=== PATIENT | female | born 1995 | race Caucasian/White ===

== ENCOUNTER 2020-01-11 17:27 | Emergency (ER) | payer OTHER, SELFPAY ==
--- NOTE | ~2020-01-11 | US_ITS ---
US OB <=14 wk fetus w TV 01/11/2020 18:55 Indication: Vaginal bleeding. Positive test 3 weeks ago. Quantitative beta-hCG level is 71. Procedure: Real-time early obstetrical ultrasound using transabdominal and transvaginal technique Comparison: No prior studies for comparison. Findings: Uterus measures 8.1 x 5.4 x 3.7 cm. Endometrium measures 8 mm. No intrauterine gestational sac or pole identified. The ovaries are normal with normal Doppler signal. Right ovary measures 2.5 x 1.4 x 1.2 cm. Left ovar y measures 3.7 x 1.5 x 1.4 cm. Impression: 1: Unremarkable pelvic ultrasound. No evidence for intrauterine . Differential diagnosis con sidering positive test with low beta hCG levels is very early intrauterine , faile d and ectopic . Recommend follow-up with serial quantitative beta-hCG levels and u ltrasound as clinically indicated. Reviewed, dictated and finalized at location A. 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 No evidence for intrauterine . Diff erential diagnosis considering positive test with low beta hCG levels is very early intrauterine , failed and ectopic . Recommend follow-up with serial quantitative beta-hCG levels and ultrasound as clinically indicated.
[2020-01-11 17:36] VITALS: BP 116/57; PULSE 90; RESP 16; TEMP 36.5; O2SAT 100
--- NOTE | 2020-01-11 18:00 | ED.PREGNANCY ---
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 Patient states her last normal menstrual period was in September. She took first had a positive test 3 weeks ago and she states she developed vaginal bleeding 1 week ago . She states initially her vaginal bleeding was heavy with clots but no her bleeding is minimal. She reports she had lower abdominal cramping that hs improved. She denies dizziness or lightheadedness. She is unsure of her blood type. She states she went to [facility] and she was sent to ER for evaluation. MD Complaint: vaginal bleeding Related Data Home Medications Medication Instructions Recorded Confirmed No Home Medications 01/11/20 01/11/20 Allergies Allergy/AdvReac Type Severity Reaction Status Date / Time No Known Allergies Allergy Unverified 01/11/20 18:05 Review of Systems Review of Systems: All systems reviewed & are unremarkable except as noted in HPI and below Constitutional: Constitutional: Denies chills and Denies fever(s) Gastrointestinal: Gastrointestinal: Reports abdominal pain, Denies nausea and Denies vomiting Genitourinary: Genitourinary: Reports abnormal vaginal bleeding PMF Past Medical History Medical History (Updated 01/11/20 @ 19:40 by Romina Blood MD) Healthy adult Social History Social History Gender identity (if verbalized by the patient): Female Exam Narrative: Exam Narrative: GENERAL: Well-appearing, well-nourished, and in no acute distress. HEAD: Normocephalic, atraumatic EYES: PERRLA and EOMI, conjunctiva clear without discharge THROAT:Mucous membranes moist, NECK: Supple, without lymphadenopathy or mass RESPIRATORY: No respiratory distress, Airway patent, Respirations non-labored, Clear to auscultation without rales, rhonchi or wheeze HEART: Regular rate and rhythm. No murmur heard. Normal peripheral pulses. ABDOMEN: Soft, nontender, nondistended, normal active bowel sounds. No masses. No rebound or guarding, No organomegaly. EXTREMITIES: No edema, normal strength with full range of motion. SKIN: Warm, dry, normal color without rash NEURO: Alert and oriented x3. CN 2-12 grossly intact. No focal deficits. PSYCH: Normal mood and affect. : Other: no vaginal bleeding, closed cervix Course Course Emergency Course: Patient presented for evaluation of vaginal bleeding. She has no bleeding currently. I suspect she is having miscarriage. I Discussed with patient she will need to follow up with [facility] to have HCG redrawn. Vital Signs Vital signs: Vital Signs Temperature 97.7 F 01/11/20 17:36 Pulse Rate 90 01/11/20 17:36 Respiratory Rate 16 01/11/20 17:36 Blood Pressure 116/57 L 01/11/20 17:36 Pulse Oximetry 100 01/11/20 17:36 Temperature 97.7 F 01/11/20 17:36 Pulse Rate 90 01/11/20 17:36 Respiratory Rate 16 01/11/20 17:36 Blood Pressure 116/57 L 01/11/20 17:36 Pulse Oximetry 100 01/11/20 17:36 MDM - OB/Uterine Contractions Lab Data Attestation: I reviewed the patient's lab results. Result diagrams: 01/11/20 18:05 Labs: Lab Results 01/11/20 01/11/20 01/11/20 Range/Units 18:05 18:05 18:05 WBC 5.3 (4.5-10.0) K/mm3 RBC 4.28 (4.2-5.4) M/mm3 Hgb 13.3 (12.0-15.0) g/dL Hct 39.5 (37.0-47.0) % MCV 92.3 (80-100) fl MCH 31.1 (26-34) pg MCHC 33.7 (32-36) g/dl RDW 12.5 (11.5-14.5) % Plt Count 230 (150-375) k/mm3 MPV 10.0 (7.4-10.4) fl Immature Gran % (Auto) 0.2 (0-0.5) % Neut % (Auto) 45.2 L (45.5-73.1) % Lymph % (Auto) 42.9 (18.3-44.2) % Mclean % (Auto) 10.2 H (2.6-8.5) % Eos % (Auto) 1.1 (0-4.4) % Baso % (Auto) 0.4 (0.2-1.2) %
[2020-01-11 18:10] LABS: Basophils Percent Auto 0.4 % (0.2-1.2); Eosinophils Absolute Auto 0.1 K/mm3 (0-0.3); Eosinophils Percent Auto 1.1 % (0-4.4); Hematocrit 39.5 % (37.0-47.0); Hemoglobin 13.3 g/dL (12.0-15.0); Immature Granulocyte Absolute 0.01 K/mm3 (0.00-0.031); Immature Granulocyte Percent A 0.2 % (0-0.5); Lymphocytes Absolute Auto 2.28 K/mm3 (0.9-3.2); Lymphocytes Percent Auto 42.9 % (18.3-44.2); Mean Corpuscular HGB Conc 33.7 g/dl (32-36); Mean Corpuscular Hemoglobin 31.1 pg (26-34); Mean Corpuscular Volume 92.3 fl (80-100); Monocytes Absolute Auto 0.5 K/mm3 (0.1-0.6); Monocytes Percent Auto 10.2 % (2.6-8.5); Neutrophils Absolute Auto 2.4 K/mm3 (1.3-6.7); Neutrophils Percent Auto 45.2 % (45.5-73.1); Platelet Count Result 230 k/mm3 (150-375); Red Blood Count 4.28 M/mm3 (4.2-5.4); Red Cell Distribution Width 12.5 % (11.5-14.5); White Blood Count 5.3 K/mm3 (4.5-10.0)
[2020-01-11 18:38] LABS: Beta HCG Quantitative 71.14 mIU/ML
== END 2020-01-11 19:57 | disposition home or self-care (01) ==
PROVIDERS: Emergency Provider General Practice
DX: O03.9 Complete or unspecified spontaneous abortion without complication (principal)
CPT/HCPCS: 36415; 76801; 76817; 84702; 85025; 86900; 86901; 99284

== ENCOUNTER 2022-05-22 15:30 | Outpatient (CLI) | payer OTHER, SELFPAY ==
[2022-05-22 15:51] VITALS: BP 129/90; PULSE 99
[2022-05-22 16:00] VITALS: BP 129/84; PULSE 93
[2022-05-22 16:15] VITALS: BP 124/87; BP 129/90; PULSE 94; PULSE 99
[2022-05-22 16:16] LABS: Basophils Percent Auto 0.3 % (0.2-1.2); Eosinophils Absolute Auto 0.1 K/mm3 (0-0.3); Eosinophils Percent Auto 0.9 % (0-4.4); Hematocrit 37.5 % (37.0-47.0); Hemoglobin 12.7 g/dL (12.0-15.0); Lymphocytes Absolute Auto 2.26 K/mm3 (0.9-3.2); Lymphocytes Percent Auto 22.6 % (18.3-44.2); Mean Corpuscular HGB Conc 33.9 g/dl (32-36); Mean Corpuscular Hemoglobin 31.8 pg (26-34); Mean Corpuscular Volume 93.8 fl (80-100); Mean Platelet Volume 12.8 fl (7.4-10.4); Monocytes Absolute Auto 0.8 K/mm3 (0.1-0.6); Monocytes Percent Auto 8.2 % (2.6-8.5); Neutrophils Absolute Auto 6.7 K/mm3 (1.3-6.7); Platelet Count Result 103 k/mm3 (150-375); Red Cell Distribution Width 13.1 % (11.5-14.5)
[2022-05-22 16:22] LABS: Appearance Urine Clear (Clear); Bilirubin Urine 1+ (Negative); Blood Urine 1+ (Negative); Color Urine Yellow (Yellow); Glucose Urine UA Negative (Negative); Ketones Urine Negative (Negative); Leukocyte Esterase Ur Negative LEU/UL (NEGATIVE); Nitrate Urine Negative (Negative); Protein Urine Trace mg/dL (Negative); Specific Grav Ur 1.025 (1.001-1.035); Urobilinogen Urine 0.2 mg/dL (<2.0)
[2022-05-22 16:27] LABS: Alanine Aminotransferase 20 U/L (6-35); Albumin Level 3.3 g/dL (3.5-5.1); Alkaline Phosphatase 249 U/L (38-126); Anion Gap 4 mmol/L (8-16); Aspartate Amino Transferase 25 U/L (14-36); Bilirubin,Total 0.4 mg/dL (0.2-1.3); Blood Urea Nitrogen 8 mg/dL (7-17); Calcium 8.3 mg/dL (8.4-10.2); Carbon Dioxide 24 mmol/L (22-30); Chloride 107 mmol/L (98-107); Estimated Glomerular Filt Rate > 60; Glucose 99 mg/dL (65-110); Potassium 3.6 mmol/L (3.4-5.0); Sodium 135 mmol/L (137-145)
[2022-05-22 16:30] VITALS: BP 120/81; PULSE 89
[2022-05-22 16:31] LABS: Bacteria Urine Trace /hpf; Calcium Oxalate Crystals Urine Present /hpf; Mucus Urine Few /lpf; Squamous Epithelial Cell Urine Occasional /hpf (Few); WBC Urine 0-3 /hpf (0-3)
[2022-05-22 16:32] LABS: Add Urine Microscopic? YES
[2022-05-22 16:36] LABS: Creatinine Urine 240.8 mg/dL; Total Protein Urine Random 7 mg/dL; Ur Ttl Prot Creatinine Ratio 0.03 mg/mg (0-0.20)
[2022-05-22 16:45] VITALS: BP 126/84; PULSE 87
--- NOTE | 2022-05-22 17:03 | PC.NURSE ---
5214- Spoke with Tiffany Teixeira CNM. Labs and BPs reviewed. Per Tiffany Teixeira, she would like to induce patient now, but patient has been hesitant to want to be induced and stay tonight. Pateint may either stay tonight or come back tomorrow morning for an induction.
--- NOTE | 2022-05-22 17:06 | PC.NURSE ---
1700- Spoke with patient regarding plan of care. Per Tiffany Teixeira, recommended for patient to stay and be induced now. patient states I really dont want to stay tonight, I wasnt prepared for any of this. I was just going to a doctors appointment today. Patient educated on her low platelet count and chooses to come back in the morning for an induction. Induction scheduled for 0700 tomorrow, 05/23/2022. Tiffany Teixeira, notified.
== END 2022-05-22 17:00 | disposition home or self-care (01) ==
LOC: ANHOBOP 15:35 → ANHOBPP 15:35
PROVIDERS: Visit Provider Advanced Practice Midwife
DX: O13.9 Gestational [pregnancy-induced] hypertension without significant proteinuria, unspecified trimester (principal); Z3A.00 Weeks of gestation of pregnancy not specified
CPT/HCPCS: 36415; 59025; 80053; 81001; 82570; 84156; 84550; 85025; 87086; 99199

== ENCOUNTER 2022-05-23 08:17 | Inpatient (IN) | payer OTHER, SELFPAY ==
[2022-05-23] VITALS (95 sets, daily range): BP systolic 109–160; BP diastolic 59–110; PULSE 32–147; RESP 16; TEMP 36.1–36.5; O2SAT 78–100; BMI 27.0
--- OUTSIDE RECORDS SUMMARY | 2022-05-23 08:32 | XMS_ITS ---
:1995 Author Care Team Providers Name Role Phone Lluvia Suzi Parveen Primary Care Provider Unavailable Allergies Code Code System Name Reaction Severity Status Onset NKDA ? Medications Name Status Start Date Stop Date ? ? famotidine 20 mg tablet Active ? Not avai lable fluconazole 150 mg tablet Completed ? 2021 metronidazole 500 mg tablet Completed ? 12/25 nitrofurantoin monohydrate/macrocrystals 100 mg capsule Complete d ? 03/13/2022 ondansetron 4 mg disintegrating tablet Active ? Not available 28 mg iron-800 mcg tablet Active ? Not available TAKE 1 TABLET BY MOUTH EVERY DAY Problems Name Status Onset Date Source ? Active 01/08/2022 ? Tobacco User Active ? ? Insufficient Care Active ? ? Current Drug User Active ? ? Procedures Date Name Performed by ? 01/08/2022 US, Obstetric, 2Nd or 3Rd Trimester [facility] [address] [place] [address] ([address]) 02/27/2022 US, Obstetric, Follow-up [place] [address] [place] [address] ([address]) 03/27/2022 US, Obstetric, Follow-up [place] [address] [place] [address] (Work [address]) 04/03/2022 US, Obstetric, Limited [place] [address]
--- OUTSIDE RECORDS SUMMARY | 2022-05-23 08:32 | XMS_ITS ---
:1995 Author Care Team Providers Name Role Phone Carmen Key Primary Care Provider Unavailabl e Allergies Code Code System Name Reaction Severity Status Onset NKDA ? Medications Name Status Start Date Stop Date ? ? Anusol-HC 2.5 % topical cream with perineal applicator Completed 01/05/2014 11/19/2015 apply externally prn azithromycin 500 mg tablet Completed 04/10/201706/09 2 p.o. today cephalexin 500 mg capsule Completed 11/23/20182018 1 capsule po BID x 7 days codeine 10 mg-guaifenesin 100 mg/5 mL oral liquid Completed 12/03/2013 02/01/2014 10ml q6h prn for cough COVID-19 test specimen collection Active ? Not available TEST DIRECTED Depo-Provera 150 mg/mL intramuscular suspension Completed 04/03/2017 04/11/2017 1 injection IM q3mos. fluconazole 150 mg tablet Active ? Not av ailable Junel FE 12/13 (28) 1 mg-20 mcg (21)/75 mg (7) tablet Completed 01/13/2017 04/03/2017 Take 1 tablet(s) by mouth daily as directed. Metrogel Vaginal 0.75 % Completed 09/20/2015 11/19/20 15 1 applicator at HS x 5 nights. metronidazole 500 mg tablet Active ? Not available Minastrin 24 Fe 1 mg-20 mcg (24)/75 mg (4) chewable tablet Compl eted 06/22/2015 09/20/2015 Take 1 tablet(s) by mouth daily as directed. naproxen 500 mg tablet,delayed release Completed 10/11/2020 take 1 tablet (500 mg) by oral route 2 times per day with food Nicoderm CQ 14 mg/24 hr daily transdermal patch Completed 09/06/2014 09/07/2014 14mg daily x 6 weeks, then 7mg daily x 6 weeks nitrofurantoin monohydrate/macrocrystals 100 mg capsule Active ? Not available
--- OUTSIDE RECORDS SUMMARY | 2022-05-23 08:32 | XMS_ITS | Encounter Summary ---
:1995 Author Reason for Visit None recorded. Assessment and Plan 1. Insufficient care ? US, obstetric, follow-up Discussion Note: None recorded.Patient educational handouts: No information available. Plan of Care Reminders Provider Appointments None recorded. ? ? Lab None recorded. ? ? Referral None recorded. ? ? Procedures None recorded. ? ? Surgeries None recorded. ? ? Imaging US, Obstetric, Follow-up 04/24/2022 Niraj rodriguez Medications Name Start Date ? ? famotidine 20 mg tablet ? Take 1 tablet twice a day by oral route. ondansetron 4 mg disintegrating tablet ? Place 1 tablet every 4-6 hours by translingual route. 28 mg iron-800 mcg tablet ? TAKE 1 TABLET BY MOUTH EVERY DAY Medications Administered None recorded. Vitals None recorded. Results Lab Results None recorded. Allergies Code Code System Name Reaction Severity Onset NKDA ? ? ? Problems Name Status Onset Date Source ? Active 01/08/2022 ? Tobacco User Active ? ? Insufficient Care Active ? ? Current Drug User Active ? ? Procedures Date Name Performed by ? 03/27/2022 US, Obstetric, Follow-up [place] [address] [place] [address] (Work [address]) 04/03/2022 US, Obstetric, Limited [place] [address] [place],
--- OUTSIDE RECORDS SUMMARY | 2022-05-23 08:32 | XMS_ITS | Encounter Summary ---
:1995 Author Reason for Visit OB visit OB [id number] EDC 05/16/2022 LMP 08/09/2021 Assessment and Plan Assessment Note Patient is _36__weeks . Discuss ed plan. 1. Routine care Discussion Note: None recorded.Patient educational handouts: No information available. Plan of Care Reminders Provider Appointments None recorded. ? ? Lab None recorded. ? ? Referral None recorded. ? ? Procedures None recorded. ? ? Surgeries None recorded. ? ? Imaging None recorded. ? ? Medications Name Start Date ? ? famotidine 20 mg tablet ? Take 1 tablet twice a day by oral route. ondansetron 4 mg disintegrating tablet ? Place 1 tablet every 4-6 hours by translingual route. 28 mg iron-800 mcg tablet ? TAKE 1 TABLET BY MOUTH EVERY DAY Medications Administered None recorded. Vitals Height Weight BMI Blood Pressure 5 ft 6 in 165 lbs 26.6 kg/m2 132/87 mm[Hg] Results Lab Results None recorded. Allergies Code Code System Name Reaction Severity Onset NKDA ? ? ? Problems Name Status Onset Date Source ? Active 01/08/2022 ? Tobacco User Active ? ? Insufficient Care Active ? ? Current Drug User Active ? ? Procedures Date Name Performed by ? 03/27/2022 US, Obstetric, Follow-up [place] [address] [place] [address]
--- OUTSIDE RECORDS SUMMARY | 2022-05-23 08:32 | XMS_ITS | Encounter Summary ---
:1995 Author Reason for Visit None recorded. Assessment and Plan 1. Medical examination for suspected co ndition ? US, obstetric, limited Discussion Note: None recorded.Patient educational handouts: No information available. Plan of Care Reminders Provider Appointments None recorded. ? ? Lab None recorded. ? ? Referral None recorded. ? ? Procedures None recorded. ? ? Surgeries None recorded. ? ? Imaging US, Obstetric, Limited 04/03/2022 Jena leyva Medications Name Start Date ? ? famotidine [...] Performed by ? 03/27/2022 US, Obstetric, Follow-up [place] [address] [place] [address] (Work [address]) 04/03/2022 US, Obstetric, Limited [place] [address]
--- OUTSIDE RECORDS SUMMARY | 2022-05-23 08:32 | XMS_ITS | Encounter Summary ---
:1995 Author Reason for Visit OB visit OB [id number] EDC 05/16/2022 LMP 08/09/2021 Assessment and Plan Assessment Note Patient is _29__weeks . Discuss ed plan. 1. Routine care ? 28 mg iron-800 mcg tablet 2. Urinary tract infectious disease ? Macrobid 100 mg capsule 3. Nausea ? ondansetron 4 mg disintegrating table t ? Pepcid 20 mg tablet Discussion Note: None recorded.Patient educational handouts: No [...] BMI Blood Pressure 5 ft 6 in 157 lbs 25.3 kg/m2 106/69 mm[Hg] Results Lab Results None recorded. Allergies Code Code System Name Reaction Severity Onset NKDA ? ? ? Problems Name Status Onset Date Source ? Active 01/08/2022 ? Tobacco User Active ? ? Insufficient Care Active ? ? Cu
--- OUTSIDE RECORDS SUMMARY | 2022-05-23 08:32 | XMS_ITS | Encounter Summary ---
:1995 Author Reason for Visit OB visit OB [id number] EDC 05/16/2022 LMP 08/09/2021 Assessment and Plan Assessment Note Patient is _34__weeks . Discuss ed plan. 1. Routine care [...] BMI Blood Pressure 5 ft 6 in 162 lbs 26.1 kg/m2 138/80 mm[Hg] Results Lab Results None recorded. Allergies Code Code System Name Reaction Severity Onset NKDA ? ? ? Problems Name Status Onset Date Source ? Active 01/08/2022 ? Tobacco User Active ? ? Insufficient Care Active ? ? Current Drug User Active ? ? Procedures Date Name Performed by ? 03/27/2022 US, Obstetric, Follow-up [place] [address] [place] [address]
--- OUTSIDE RECORDS SUMMARY | 2022-05-23 08:32 | XMS_ITS | Encounter Summary ---
:1995 Author Reason for Visit OB visit OB [id number] EDC 05/16/2022 LMP 08/09/2021 Assessment and Plan Assessment Note Patient is __37_weeks . Discuss ed plan. 1. Routine care [...] ft 6 in 165 lbs 26.6 kg/m2 134/85 mm[Hg] Results Lab Results None recorded. Allergies Code Code System Name Reaction Severity Onset NKDA ? ? ? Problems Name Status Onset Date Source ? Active 01/08/2022 ? Tobacco User Active ? ? Insufficient Care Active ? ? Current Drug User Active ? ? Procedures Date Name Performed by ? 04/03/2022 US, Obstetric, Limited [facility] [address] [place] [address]
--- OUTSIDE RECORDS SUMMARY | 2022-05-23 08:32 | XMS_ITS | Encounter Summary ---
:1995 Author Reason for Visit OB visit OB [id number] EDC 05/16/2022 LMP 08/09/2021 Assessment and Plan Assessment Note Patient is ___weeks . Discussed plan. 1. Routine care Discussion Note: None [...] BMI Blood Pressure 5 ft 6 in 167 lbs 27 kg/m2 147/100 mm[Hg] Results Lab Results None recorded. Allergies Code Code System Name Reaction Severity Onset NKDA ? ? ? Problems Name Status Onset Date Source ? Active 01/08/2022 ? Tobacco User Active ? ? Insufficient Care Active ? ? Current Drug User Active ? ? Procedures Date Name Performed by ? 04/24/2022 US, Obstetric, Follow-up [place] [address] [place] [address]
--- OUTSIDE RECORDS SUMMARY | 2022-05-23 08:32 | XMS_ITS | Encounter Summary ---
:1995 Author Reason for Visit OB visit OB [id number] EDC 05/16/2022 LMP 08/09/2021 Assessment and Plan Assessment Note Patient is __30_weeks . Discuss ed plan. 1. Routine care [...] BMI Blood Pressure 5 ft 6 in 158 lbs 25.5 kg/m2 117/76 mm[Hg] Results Lab Results None recorded. Allergies Code Code System Name Reaction Severity Onset NKDA ? ? ? Problems Name Status Onset Date Source ? Active 01/08/2022 ? Tobacco User Active ? ? Insufficient Care Active ? ? Current Drug User Active ? ? Procedures Date Name Performed by ? 02/27/2022 US, Obstetric, Follow-up [facility] [address] [place] [address]
--- OUTSIDE RECORDS SUMMARY | 2022-05-23 08:32 | XMS_ITS | Encounter Summary ---
:1995 Author Reason for Visit OB visit OB [id number] EDC 05/16/2022 LMP 08/09/2021 Assessment and Plan Assessment Note Patient is _32__weeks . Discuss ed plan. 1. Routine care [...] BMI Blood Pressure 5 ft 6 in 159 lbs 25.7 kg/m2 122/80 mm[Hg] Results Lab Results None recorded. Allergies Code Code System Name Reaction Severity Onset NKDA ? ? ? Problems Name Status Onset Date Source ? Active 01/08/2022 ? Tobacco User Active ? ? Insufficient Care Active ? ? Current Drug User Active ? ? Procedures Date Name Performed by ? 02/27/2022 US, Obstetric, Follow-up [place] [address] [place] [address]
--- OUTSIDE RECORDS SUMMARY | 2022-05-23 08:32 | XMS_ITS | Encounter Summary ---
[...] recorded. ? ? Imaging US, Obstetric, Follow-up 03/27/2022 Niraj rodriguez Medications Name Start Date ? [...] Performed by ? 02/27/2022 US, Obstetric, Follow-up [place] [address] [place] [address] (Work [address]) 03/27/2022 US, Obstetric, Follow-up [place] [address],
--- OUTSIDE RECORDS SUMMARY | 2022-05-23 08:32 | XMS_ITS | Encounter Summary ---
[...] recorded. ? ? Imaging US, Obstetric, Follow-up 02/27/2022 Niraj rodriguez Medications Name Start Date ? [...] Performed by ? 02/27/2022 US, Obstetric, Follow-up [place] [address] [place] [address] ([address]) Vaccine List None recorded. Social History Tobacco Smoking Status Heavy Tobacco Smoker (1/2 pack per da y) What type of diet are you following? REGULAR
--- NOTE | 2022-05-23 09:28 | LDADM ---
This patient, Maranda Gomez, was admitted to Labor/Delivery/Recovery 107 on 05/23/22 at 08:17. Plans for labor, pain management and were discussed with patient. Patient/family oriented to hospital policies and general routines including ID bracelet, bed and alarms, visiting hours, pain management, procedures, bathroom and other care routines, personal items, smoking policy, room service/diet and guest tray routines, infant security routines, and visiting hours. Patient/Family are encouraged to report perceived risks to care and to ask questions if they do not understand what they are told or what they should do. See OBIX for further documentation.
[2022-05-23 09:30] LABS: Basophils Percent Auto 0.2 % (0.2-1.2); Eosinophils Absolute Auto 0.1 K/mm3 (0-0.3); Hematocrit 39.5 % (37.0-47.0); Hemoglobin 13.2 g/dL (12.0-15.0); Immature Granulocyte Percent A 1.7 % (0-0.5); Lymphocytes Absolute Auto 2.72 K/mm3 (0.9-3.2); Lymphocytes Percent Auto 23.7 % (18.3-44.2); Mean Corpuscular HGB Conc 33.4 g/dl (32-36); Mean Corpuscular Hemoglobin 31.2 pg (26-34); Mean Corpuscular Volume 93.4 fl (80-100); Mean Platelet Volume 12.9 fl (7.4-10.4); Monocytes Percent Auto 8.5 % (2.6-8.5); Neutrophils Absolute Auto 7.5 K/mm3 (1.3-6.7); Neutrophils Percent Auto 64.9 % (45.5-73.1); Platelet Count Result 122 k/mm3 (150-375); Red Blood Count 4.23 M/mm3 (4.2-5.4); Red Cell Distribution Width 13.2 % (11.5-14.5); White Blood Count 11.5 K/mm3 (4.5-10.0)
[2022-05-23] MEDS: AMPICILLIN 2 GM/NS 100 ML 2 GM/100 ML BAG IVPB (10:33)
[2022-05-23] MEDS: OXYTOCIN 30 UNITS/NS 500 ML 30 UNITS/500 ML BAG IV CONT (10:33)
[2022-05-23] MEDS: LACTATED RINGERS 1,000 ML 125 ML IV CONT (10:34)
[2022-05-23 10:40] LABS: Barbiturate Screen Urine Negative (Negative); Benzodiazepines Screen Urine Negative (Negative)
[2022-05-23 10:53] LABS: Cannabinoid Screen Urine Negative (Negative); Cocaine Screen Urine Negative (Negative); Methadone Screen Urine Negative (Negative); Opiate Screen Urine Negative (Negative); Phencyclidine Screen Urine Negative (Negative)
[2022-05-23 11:00] LABS: Amphetamine Screen Urine Positive (Negative)
--- NOTE | 2022-05-23 14:03 | PM.OBPNLAB ---
Pain Control Date/time seen: 05/23/22 14:03 Pelvic Exam Dilation (cm): 3
--- NOTE | 2022-05-23 14:03 | WPDOBADMIT ---
Obstetrics - Admit Note Admission Note: record reviewed. No pertinent additions to the history and/or any subsequent changes in the physical findings that are not consistent with the expected course of the were found. Admitted to labor and delivery for induction at 41 weeks. History of fentanyl and amphetamine use during . Sterile vaginal exam 3.5/80/-1. Arom performed, Moderate amount of clear odorless fluid. Anticipate vaginal delivery. Additions to the history and/or subsequent changes in the physical findings follow. None.
[2022-05-23] MEDS: AMPICILLIN 1 GM/NS 50 ML 1 GM/50 ML BAG IVPB (14:28)
--- NOTE | 2022-05-23 16:22 | WPDANESEPP ---
Anes - Eval Pre Procedure Procedure: labor epidural Date/Time: 05/23/22 16:22 Surgeon: soina Preop Diagnosis: pain during labor Pre Op Diagnosis: IOL Patient Data Age: 27 Gender: F Height: 1.68 m Weight: 76 kg Last Vital Signs Temp 36.1 C L 05/23/22 14:51 Pulse 104 H 05/23/22 16:21 BP 143/85 H 05/23/22 16:21 Pulse Ox 99 05/23/22 16:19 O2 Del Method Room Air 05/23/22 09:27 Allergies Allergy/AdvReac Type Severity Reaction Status Date / Time No Known Allergies Allergy Unverified 05/23/22 08:56 Home Medications Medication Instructions Recorded Confirmed Type vit no.95-ferrous 1 tablet PO DAILY 05/22/22 05/23/22 History fumarate 28 mg-folic acid 800 mcg tablet () Laboratory Tests 05/23/22 05/23/22 05/23/22 09:19 09:19 09:19 WBC 11.5 K/mm3 H K/mm3 (4.5-10.0) RBC 4.23 M/mm3 M/mm3 (4.2-5.4) Hgb 13.2 g/dL g/dL (12.0-15.0) Hct 39.5 % % (37.0-47.0) MCV 93.4 fl fl (80-100) MCH 31.2 pg pg (26-34) MCHC 33.4 g/dl g/dl (32-36) RDW 13.2 % % (11.5-14.5) Plt Count 122 k/mm3 L k/mm3 (150-375) MPV 12.9 fl H fl (7.4-10.4) Immature Gran % (Auto) 1.7 % H % (0-0.5) Neut % (Auto) 64.9 % % (45.5-73.1) Lymph % (Auto) 23.7 % % (18.3-44.2) Tucker % (Auto) 8.5 % % (2.6-8.5) Eos % (Auto) 1.0 % % (0-4.4) Baso % (Auto) 0.2 % % (0.2-1.2) Lymph # (Auto) 2.72 K/mm3 K/mm3 (0.9-3.2) Tucker # (Auto) 1.0 K/mm3 H K/mm3 (0.1-0.6) Eos # (Auto) 0.1 K/mm3 K/mm3 (0-0.3) Baso # (Auto) 0.0 K/mm3 K/mm3 (0.0-0.1) Abs Immat Gran (auto) 0.20 K/mm3 H K/mm3 (0.00-0.031) Absolute Neuts (auto) 7.5 K/mm3 H K/mm3 (1.3-6.7) Absolute Nucleated RBC 0.0 K/mm3 K/mm3 (0.0-0.012) Nucleated RBC % 0.0 % % (0.0-0.2) Urine Opiates Screen Urine Methadone Screen Ur Barbiturates Screen Ur Phencyclidine Scrn Ur Amphetamine Screen U Benzodiazepines Scrn Urine Cocaine Screen U Cannabinoids Screen RPR Pending Blood Type A Positive Antibody Screen Negative 05/23/22 09:19 WBC RBC Hgb Hct MCV MCH MCHC RDW Plt Count MPV Immature Gran % (Auto) Neut % (Auto) Lymph % (Auto) Tucker % (Auto) Eos % (Auto) Baso % (Auto) Lymph # (Auto) Tucker # (Auto) Eos # (Auto) Baso # (Auto) Abs Immat Gran (auto) Absolute Neuts (auto) Absolute Nucleated RBC Nucleated RBC % Urine Opiates Screen Negative (Negative) Urine Methadone Screen Negative (Negative) Ur Barbiturates Screen Negative (Negative) Ur Phencyclidine Scrn Negative (Negative) Ur Amphetamine Screen Positive A (Negative) U Benzodiazepines Scrn Negative (Negative) Urine Cocaine Screen Negative (Negative) U Cannabinoids Screen Negative (Negative) RPR Blood Type Antibody Screen Patient hx anesthesia problems: none Family hx anesthesia problems: none Results Review: All pre-operative results and documents have been reviewed as part of the pre-operative evaluation. [facility] Past Medical History Medical History (Updated 05/23/22 @ 16:23 by Brenda Rai CRNA) Healthy adult Intrauterine Social History Social History (Updated 05/23/22 @ 09:32 by Janette López RN) Smoking packs per day: 0.5 Smoking cigarettes per day: 10.0 Years smoked: 14 Smoking pack-years: 7.00 Smoking status: Current every day smoker Tobacco type: cigarettes Alcohol intake: former Alcohol use details: has not drank in 4-5 years Substance use:
--- NOTE | 2022-05-23 18:05 | P.PCNOB_ITS ---
OB - Delivery Note Procedure Delivery date: 05/23/22 Procedure: Vaginal delivery Events: Elective Induction of Labor Induction method: AROM and Per Pitocin Protocol Delivery monitor: External FHT and External Uterine Route of delivery: Episiotomy description: None Laceration Description: None Specimen: Yes Quantitative Blood Loss (ml): 97 Anesthesia type: Epidural Disposition: Floor [place] Baby Date of : 05/23/22 Time of : 17:49 Weeks of gestation at delivery: 41 Infant gender: Female Weight (pounds): 7 Weight (ounces): 5 presentation: vertex position: Right Occiput Anterior Placenta delivery description: Spontaneous Cord Vessel Description: 3 Vessels, Clamped/Cut and Delayed Cord Clamping score one minute: 9 score five minutes: 9 Narrative: mom and baby skin to skin in stable condition
[2022-05-23] MEDS: OXYTOCIN 30 UNITS/NS 500 ML 30 UNITS/500 ML BAG 125 UNITS IV CONT (18:45)
[2022-05-23] MEDS: WITCH HAZEL 40 PADS 1 PAD TOPICAL (20:30)
[2022-05-23] MEDS: BENZOCAINE 20% AER SPR (*SP) 56 GM CAN 1 SPRAY TOPICAL (20:30)
[2022-05-23] MEDS: IBUPROFEN 600 MG TABLET PO (20:30)
[2022-05-23] MEDS: ACETAMINOPHEN 325 MG TABLET 650 MG PO (22:54)
[2022-05-24 04:20] VITALS: BP 125/74; PULSE 70; RESP 14; TEMP 36.6; O2SAT 100
[2022-05-24] MEDS: IBUPROFEN 600 MG TABLET PO ×4 (04:45→22:50)
[2022-05-24 05:58] LABS: Hematocrit 37.2 % (37.0-47.0); Hemoglobin 12.3 g/dL (12.0-15.0)
[2022-05-24 07:25] VITALS: BP 107/69; PULSE 73; RESP 16; TEMP 37.1; O2SAT 100
[2022-05-24 07:35] LABS: Rapid Plasma Reagin Non-Reactive (NonReactive)
--- NOTE | 2022-05-24 07:49 | P.PNOB_ITS ---
OB - PN: Subj Subjective Date/time seen: 05/24/22 07:49 s/p vaginal delivery day 1 OB - PN: Obj Data Labs CBC & Chem 7: 05/24/22 04:35 Labs: Laboratory Results - last 24 hr 05/23/22 05/23/22 05/23/22 09:19 09:19 09:19 WBC 11.5 H RBC 4.23 Hgb 13.2 Hct 39.5 MCV 93.4 MCH 31.2 MCHC 33.4 RDW 13.2 Plt Count 122 L MPV 12.9 H Immature Gran % (Auto) 1.7 H Neut % (Auto) 64.9 Lymph % (Auto) 23.7 Mcnairy % (Auto) 8.5 Eos % (Auto) 1.0 Baso % (Auto) 0.2 Lymph # (Auto) 2.72 Mcnairy # (Auto) 1.0 H Eos # (Auto) 0.1 Baso # (Auto) 0.0 Abs Immat Gran (auto) 0.20 H Absolute Neuts (auto) 7.5 H Absolute Nucleated RBC 0.0 Nucleated RBC % 0.0 Urine Opiates Screen Urine Methadone Screen Ur Barbiturates Screen Ur Phencyclidine Scrn Ur Amphetamine Screen U Benzodiazepines Scrn Urine Cocaine Screen U Cannabinoids Screen RPR Non-reactive Blood Type A Positive Antibody Screen Negative 05/23/22 05/24/22 09:19 04:35 WBC RBC Hgb 12.3 Hct 37.2 MCV MCH MCHC RDW Plt Count MPV Immature Gran % (Auto) Neut % (Auto) Lymph % (Auto) Mcnairy % (Auto) Eos % (Auto) Baso % (Auto) Lymph # (Auto) Mcnairy # (Auto) Eos # (Auto) Baso # (Auto) Abs Immat Gran (auto) Absolute Neuts (auto) Absolute Nucleated RBC Nucleated RBC % Urine Opiates Screen Negative Urine Methadone Screen Negative Ur Barbiturates Screen Negative Ur Phencyclidine Scrn Negative Ur Amphetamine Screen Positive A U Benzodiazepines Scrn Negative Urine Cocaine Screen Negative U Cannabinoids Screen Negative RPR Blood Type Antibody Screen OB - PN A/P Plan day: 1 Plan: routine care Time Spent With Patient Time: Total time spent is greater than 50% in coordination of care (as documented) at patient's floor/unit and/or counseling patient: Review of Systems Review of Systems: All systems reviewed & are unremarkable except as noted in HPI and below Exam Const: General: cooperative, healthy appearing and comfortable
[2022-05-24] MEDS: DOCUSATE SODIUM 100 MG CAPSULE PO (10:51)
--- NOTE | 2022-05-24 11:39 | PCCCNOTE ---
Addendum entered by Pat Sanchez, APPLE PRESS OPERATOR 05/24/22 15:15: Spoke with Indy [facility]. [facility] financial investigator, who came out to see pt. and baby today. She reports main worker will be Diane if baby discharges through the week. Per RNKamla, wire wheeler plans to watch baby for 5 days for symptoms of further withdrawal. If something would come up over weekend, Annabel Reis, [facility] clay preparation supervisor is contract negotiator [phone]. Original Note: Care Coordination: Patient referred to CC for drug use during . Pt. and baby also both have UDS positive for amphetamines. RN reports baby was very jittery and hard to console last night, but has done a little better this morning. Spoke with pt. at bedside. She reports fentanyl is her drug of choice, but You know it's not really done like a pharmacy, so I don't know if something else gets in there. Pt. is referring to positive amphetamine drug screen. Pt. states having 3 year old and 8 year old that are not in her care and removed through [facility]. Pt. plans to return home with her mother. Pt. reports she had been going to [facility] for counseling and methadone, but hasn't been for about a month due to transportation, so she's been using fentanyl. Pt. had late care with [facility], but she reports also had been going to another clinic called [facility]. Spoke with [facility] hotline worker, Kia Dennis, who states they will take report on pt. Intake ID#[id number]. Received call from [facility] financial investigator, Diane, ([phone]) that someone from [facility] will likely be coming out to do investigation since pt. is from [facility] and we are in [facility]. Notified Diane that pt. will discharge tomorrow and baby could be this weekend, but watching for withdrawals. Provided pt. with drug rehab information and offered to get her setup with [facility] or other drug rehab places, but pt. reports not ready to work on that yet. RNKathleen, aware of above. Will follow.
[2022-05-24 12:10] VITALS: BP 155/76; PULSE 86; RESP 16; TEMP 36.7; O2SAT 99
--- NOTE | 2022-05-24 14:52 | WPDANLDPN2 ---
Anes-Prog Note L&D Date/Time: 05/24/22 14:52 Neuro status: Neuro function grossly intact. Vital Signs: Last Vital Signs Temp 36.7 C 05/24/22 12:10 Pulse 86 05/24/22 12:10 Resp 16 05/24/22 12:10 BP 155/76 H 05/24/22 12:10 Pulse Ox 99 05/24/22 12:10 O2 Del Method Room Air 05/23/22 09:27 Pain score (VAS): 0 I/O: Intake & Output 05/23/22 05/24/22 05/24/22 23:59 07:59 15:59 Intake Total 500 Output Total 97 Balance 403 Patient feedback: Patient satisfied with anesthetic care.
[2022-05-24 16:30] VITALS: BP 133/77; PULSE 100; RESP 16; TEMP 36.7; O2SAT 98
[2022-05-24] MEDS: ACETAMINOPHEN 325 MG TABLET 650 MG PO (16:38)
--- NOTE | 2022-05-24 17:21 | PC.NURSE ---
1254 Diane / [facility] (Primary Sanding Machine Tender Automatic) #[phone], called to let us know that another clerical investigator from [facility] would be out to see mom (Maranda Gomez) hopefully today because mom lives in [facility] but [facility] is in [facility] so they need to do a parallel investigation and interview mom. [address] Jerez to advise him that baby's UDS came back positive for amphetamines, he would like to know if it is ok that baby is rooming in with mom since baby now has a positive UDS. Notified Martha Hyman, OB Director and she would like for the RN to verify with DCFS if ok for baby to room in. 1355 Called and spoke with Diane ([facility] [employer]) and asked about baby rooming in with mom now that baby has a positive UDS for amphetamines, she will check with her compensation supervisor and call the RN back. 1409 Pullman Vern ([facility] clerical investigator) here to interview mom (Maranda Gomez). Ms. Porras was given information/update on mom and baby. A copy of her ID was placed in mom's chart. Per Ms. Porras she believes that it is ok for baby to room in with mom until DCFS takes baby into protective custody at discharge but she will check with her compensation supervisor to make sure. Per Ms. Porras, Annabel Reis is to be called when the baby is ready for discharge #[phone], her info and Diane's ([facility]) info are on the back of the cardex at the main desk on OB 2nd. 1420 Lauren Porras in mom's room (Maranda Gomez) conducting interview. 1424 Rocio Sanchez (Care Coordination) called and she heard back from Diane ([facility]) and per her compensation supervisor it is OK for baby to room in with mom until baby's discharge. [address] Jerez, update given on baby rooming in. He plans on baby staying in the hospital for 5 days for observation. 1450 Lauren Porras out of the mom's (Maranda Gomez's) room and given update that the engineering and development director plans on the baby staying in the hospital for 5 days for observation. Per Vern she has advised mom (Maranda) that the baby will go into protective custody when the baby's is discharged and will not be going home with her. 1453 Lauren Porras updated Rocio Sanchez (Care Coordination). 1500 Spoke with Lynda Hyman (OB Director) and once mom (Maranda Gomez) is discharged the baby will go downstairs and be under the 1st floor nursery's care and mom may have a no care bed on the first floor in OB dept. 1511 Pat Sanchez (Care Coordination) called to let the RN know that Diane ([facility] called back and wanted to know the engineering and development director's plan of care, advised her that he plans on keeping baby for 5 days for observation for withdrawal. 1515 Diane ([facility] [employer]) called and would like Dr. Jerez to call her, she needs to go over his plan of care and speak with him directly because this case is going to court next week (Sunday May 29, 2022), her number was given to Dr. Jerez, he will follow up.
[2022-05-24 19:10] VITALS: BP 130/91; PULSE 104; RESP 16; TEMP 36.6
--- NOTE | 2022-05-25 08:00 | PC.NURSE ---
PT introductions made and plan of care discussed per post , pain management, bottle feeding, daily care activities, DCFS, no care bed discharge, baby withdrawal symptoms and pending discharge to home. PT sole recipient of such instructions and no barriers to learning identified at this time. PT received such instructions this shift per one to one discussion, mom baby care and demonstrations. PT verbalized understanding of such care.
--- NOTE | 2022-05-25 08:40 | PM.OBPNVD ---
OB - PN: Subj Subjective Date/time seen: 05/25/22 08:40 Patient comments: no complaints, pain well controlled and tolerating diet OB - PN: Obj Data Labs CBC & Chem 7: 05/24/22 04:35 OB - PN A/P Plan day: 2 Plan: routine care and discharge home Time Spent With Patient Time: Total time spent is greater than 50% in coordination of care (as documented) at patient's floor/unit and/or counseling patient: Exam Const: General: comfortable and no acute distress Resp: Effort & Inspection: normal respiratory effort Auscultation: no rales, no rhonchi and no wheezes Cardio: Rate: regular rate Heart sounds: no click, no murmurs and no rubs GI: GI Palp: Yes Soft to palpation and No Tenderness to palpation present (GI) Auscultation: normal bowel sounds Extrem: General: normal to inspection, no pedal edema and no calf tenderness
--- NOTE | 2022-05-25 08:41 | PM.OBDSVD ---
DS: Admitting Diagnosis Discharge Date 05/25/22 Admitting Diagnosis term DS: Discharge Diagnosis Discharge Diagnosis (1) Term delivered: Code(s): O80 - Encounter for full-term uncomplicated delivery Status: Acute OB - DS: Summary OB Procedures : None OB Procedures Intrapartum: Spontaneous Vag Delivery OB Procedures: : None Time Spent with Patient Time attestation: Total time spent providing and/or coordinating discharge services: DS: Data Data Completed and Pending Pending studies at discharge: Pending at discharge 05/23/22 19:00 Surgical [PTH] Routine Discharge Plan Discharge Attending physician on discharge: Danay Huerta Discharging Clinician: Danay Huerta Patient Disposition: Home, Self-Care Activity: pelvic rest Diet: regular Discharge Instructions: Education: Mom and Baby Guide Given to: Mother Follow-Up: Call your delivering provider's office for an appointment to be seen in: 6 Weeks Mom and baby should come to the [facility] for the follow-up appointment. Appointment Date/Time: May 27, 2022 at 12:30 pm What to expect at your follow-up visit: Blood Pressure Check Call [phone] if you are unable to keep your appointment time. BREAST CARE: * Wear a snug supportive bra. * For engorgement discomfort: Bottle Feeding: * May apply ice packs PERINEAL CARE: * Until bleeding stops, use your libby bottle after urinating * Change your pad frequently throughout the day * You may take sitz baths several times a day (fill your bathtub with warm water and soak for 20 minutes.) Do NOT bathe in the water * No tub baths until seen by your physician - You may shower ACTIVITY: * Rest as much as possible. * Do not exercise or lift anything heavier than your baby (such as laundry or other children.) * Avoid stairs or driving as much as possible. * Do not put anything into the vagina. No douching, tampons, or sexual activity until seen by physician. NOTIFY PHYSICIAN IF YOU HAVE ANY QUESTIONS OR IF ANY OF THE FOLLOWING SYMPTOMS OCCUR: * If your perineum becomes red, swollen, or more painful than what you have experienced in the hospital. * If your vaginal bleeding becomes foul smelling. * If your vaginal bleeding becomes more heavy than a period or if your bleeding changes from pink to bright red. However, you may pass an occasional walnut-sized clot once or twice for the first week . * If you experience a sharp, shooting pain in you calves. * If you discover a hard, reddened area on your breast or if you experience flu-like symptoms. * If you have fever of 100.4 or greater DIET: * Eat regular, well-balanced meals. * Drink plenty of fluids daily. If , drink to thirst. Patient Instructions: Antibiotic Form Stand Alone Forms: General Discharge Information Follow-up/Referrals: Danay Huerta MD [Physician] - Discharge Medications: Continued PNV [id number] [] 28 mg iron- 800 mcg tablet 1 tablet PO DAILY Date of admission: 05/23/22 08:17 Primary Care Provider: PHYSICIAN,MERCHANDISING CONSULTANT Admitting Provider: Danay Huerta Attending physician on admission: Danay Huerta Condition: Stable
[2022-05-25] MEDS: ACETAMINOPHEN 325 MG TABLET 650 MG PO (09:26)
[2022-05-25] MEDS: IBUPROFEN 600 MG TABLET PO (09:27)
[2022-05-25 09:30] VITALS: BP 135/90; PULSE 97; RESP 18; TEMP 37.2; O2SAT 99
--- NOTE | 2022-05-25 13:00 | PC.NURSE ---
Pt received discharge instructions per protocol and verbalized understanding of such care.
--- NOTE | 2022-05-25 13:30 | PC.NURSE ---
PT discharged to home via No Care Bed accompanied by significant other. PT staying in room 284 for now until available downstairs nursery per Director and Dr Jerez. may room in with pt unless pt choses otherwise and leaves unit. Follow up appts confirmed
== END 2022-05-25 13:30 | disposition home or self-care (01) | DRG 560 ==
LOC: ANHLDR 08:29 → ANHOB2 21:13
PROVIDERS: Advanced Practice Midwife; Admitting Provider Obstetrics & Gynecology; Visit Provider Obstetrics & Gynecology
DX: O99.324 Drug use complicating childbirth (principal); Z37.0 Single live birth; Z3A.41 41 weeks gestation of pregnancy; F15.90 Other stimulant use, unspecified, uncomplicated
CPT/HCPCS: 36415; 80307; 85014; 85018; 85025; 86592; 86850; 86900; 86901; 88307; A9270; J0290; J2590; J2795; J7120

== ENCOUNTER 2023-11-05 19:31 | Emergency (ER) | payer OTHER, SELFPAY ==
[2023-11-05 19:39] VITALS: BP 100/57; PULSE 81; RESP 18; TEMP 37.2; O2SAT 99
--- NOTE | 2023-11-05 20:02 | ED.DENTAL ---
HPI - Dental/Oral General Chief complaint: Dental/Oral Stated complaint: Dental Pain Time Seen by Provider: 11/05/23 20:02 Source: patient Mode of arrival: ambulatory Limitations: no limitations History of Present Illness HPI Narrative: 28-year-old female presents with complaint of dental pain. Reports broken tooth to right lower and left upper. Reports cavity to right upper molar. Unable to get in with her dentist. Afebrile. Also reports unknown last menstrual period. Has appointment with collective bargaining specialist next week. No abdominal complaints. No urinary or vaginal complaints. All systems reviewed and negative except as noted above. Related Data Allergies Allergy/AdvReac Type Severity Reaction Status Date / Time No Known Allergies Allergy Verified 11/05/23 19:38 Review of Systems Review of Systems: CONSTITUTIONAL: Denies fever, chills, or sweats. EYES: Denies visual changes, redness, or discharge. ENT: Denies rhinorrhea, congestion, sore throat, or otalgia. Reports central pain. CARDIOVASCULAR: Denies chest pain, palpitations, or edema. RESPIRATORY: Denies cough or dyspnea. GASTROINTESTINAL: Denies abdominal pain, nausea, vomiting, or diarrhea. GENITOURINARY: Denies dysuria or hematuria. SKIN: Denies rash or itching. MUSCULOSKELETAL: Denies back pain, joint pain, or myalgia. NEUROLOGIC: Denies headache, numbness, or weakness. PSYCHIATRIC: Denies anxiety or depression. All other systems reviewed are negative, except as documented in HPI. [facility] Past Medical History Medical History (Updated 11/05/23 @ 20:08 by Rose Hunter NP) Healthy adult Intrauterine Social History Social History (Updated 05/23/22 @ 09:32 by Janette López RN) Smoking packs per day: 0.5 Smoking cigarettes per day: 10.0 Years smoked: 14 Smoking pack-years: 7.00 Smoking status: Current every day smoker Tobacco type: cigarettes Alcohol intake: former Alcohol use details: has not drank in 4-5 years Substance use: current Substance use type: marijuana, amphetamines, opiates, painkillers and methamphetamine Other substance usage details: currentl fentanyl; denies other drug use currently Last use: 05/20/2022 Gender identity (if verbalized by the patient): Female Spiritual care concerns: No Agree to blood products: Yes Comments At time of signature, agree with nursing past medical, surgical, social and family history. There is no relevant family history pertinent to the presenting complaint. Exam Narrative: GENERAL: This is a well-nourished, well-developed patient, in no apparent distress. HEAD: normocephalic, atraumatic. EYES: PERRL. Sclera clear/white. Vision is grossly intact. EARS: External ears normal NOSE: External nose normal MOUTH: cavity tooth #1, broken decayed #29, #14 NECK: Neck supple, non-tender without lymphadenopathy, masses or thyromegaly. CARDIOVASCULAR: Regular rate and rhythm without murmurs, gallops, or rubs. RESPIRATORY: Clear to auscultation. Breath sounds equal bilaterally. No wheezes, rales, or rhonchi. SKIN: warm, Dry, intact with no suspicious lesions or rash, good texture and turgor. NEURO: awake, alert, and oriented to person, place and time. There were no obvious focal neurologic abnormalities. EXTREMITIES: No joint tenderness, effusion, or edema noted. Course Course Level of Care: Express Care Visit Vital Signs Vital signs: Vital Signs Temperature 37.2 C 11/05/23 19:39 Pulse Rate 81 11/05/23 19:39 Respiratory Rate 18 11/05/23 19:39 Blood Pressure 100/57 L 11/05/23 19:39 Pulse Oximetry 99 11/05/23 19:39 Oxygen Delivery Room Air 11/05/23 19:39 Temperature 37.2 C 11/05/23 19:39 Pulse Rate 81 11/05/23 19:39 Respiratory Rate 18 11/05/23 19:39 Blood Pressure 100/57 L 11/05/23 19:39 Pulse Oximetry 99 11/05/23 19:39 Oxygen Delivery Room Air 11/05/23 19:39 Reviewed MDM - Dental/Oral MDM Narrative Medic
== END 2023-11-05 20:13 | disposition home or self-care (01) ==
PROVIDERS: Emergency Provider Nurse Practitioner Family
DX: K08.89 Other specified disorders of teeth and supporting structures (principal); Z32.01 Encounter for pregnancy test, result positive
CPT/HCPCS: 81025; 99213; G0463